=== PATIENT | male | born 1990 | race Caucasian/White ===

== ENCOUNTER 2016-08-24 05:20 | Observation (INO) | payer OTHER ==
[~2016-08-24] VITALS: Ht 185.4 cm; Wt 89.0 kg
[~2016-08-24 05:20] MED LIST: IBUP800T23 PO; OMEP20CA5 PO; PROM25SU8 PO; Z.0.NO CURRENT MEDS
[2016-08-24 05:23] VITALS: BP 133/88; PULSE 98; RESP 16; TEMP 97.5; O2SAT 100
[2016-08-24] MEDS ORDERED: SODIUM CHLOR 0.9% 1000 ML INJ 1,000 ML IV ONE (05:54)
[2016-08-24] MEDS ORDERED: SODIUM CHLOR 0.9% 1000 ML INJ 800 ML IV ONE (05:54)
[2016-08-24] MEDS ORDERED: MORPHINE SULFATE 4 MG/ML INJ IV PUSH ONE (06:00)
[2016-08-24] MEDS ORDERED: ONDANSETRON HCL 4 MG/2 ML VIAL IV PUSH ONE (06:00)
--- NOTE | 2016-08-24 06:02 | PD ---
HPI Chief Complaint: Abdominal Pain Time Seen by Provider: 05:49 Travel History International Travel<30 days: No Contact w/Intl Traveler<30days: No Traveled to known affect area: No History of Present Illness HPI 26-year-old male here for evaluation of abdominal pain, backache, fever, vomiting, generalized malaise. Symptoms started about 4 days ago. He was seen at [facility] 3 days ago where he reportedly had blood work and a CT abdomen pelvis that showed an enlarged gland, and was discharged home with antiemetics. He reports that his pain has not subsided. Abdominal pain is diffuse, cramping, moderate, no modifying factors, associated with nausea and vomiting. The patient is also reporting bilateral/lateral lower back pain which is worse with movements as well as a frontal headache which has been intermittent for the last 3 weeks. He reports that he has had very little to eat or drink in the last few days, and has had decreased urinary output. He has not had a bowel movement in last 5 days. No history of abdominal surgeries. He denies alcohol abuse. No history of IVDU. [facility] Past Medical History Hypertension: Yes Social History Alcohol Use: No Tobacco Use: Yes (06/18 PPD) Substance Use: No Allergies-Medications (Allergen,Severity, Reaction): Coded Allergies: No Known Allergies (Verified , 08/24/16) Reported Meds & Prescriptions Reported Meds & Active Scripts Active No Active Prescriptions or Reported Medications Review of Systems Except as stated in HPI: all other systems reviewed are Neg Physical Exam Narrative GENERAL: Well-developed, well-nourished, moderate distress secondary to pain. SKIN: Warm and dry. HEAD: Atraumatic. Normocephalic. EYES: Pupils equal and round. No scleral icterus. No injection or drainage. ENT: Mucous membranes pink and moist. NECK: Trachea midline. No JVD. No nuchal rigidity. CARDIOVASCULAR: Regular rate and rhythm. RESPIRATORY: No accessory muscle use. Clear to auscultation. Breath sounds equal bilaterally. GASTROINTESTINAL: Abdomen soft, nondistended. Mild diffuse tenderness without peritoneal signs. MUSCULOSKELETAL: No obvious deformities. No clubbing. No cyanosis. No edema. Mild midline vertebral tenderness over the thoracic and lumbar spine with moderate lumbar paraspinal tenderness. NEUROLOGICAL: Awake and alert. No obvious cranial nerve deficits. Motor grossly within normal limits. Normal speech. PSYCHIATRIC: Appropriate mood and affect; insight and judgment normal. Data Data Last Documented VS Vital Signs Date Time Temp Pulse Resp B/P Pulse Ox O2 Delivery O2 Flow Rate FiO2 08/24/16 05:55 18 08/24/16 05:23 97.5 98 133/88 100 Room Air Orders Complete Blood Count With Diff (08/24/16 05:54) Comprehensive Metabolic Panel (08/24/16 05:54) Prothrombin Time / Inr (Pt) (08/24/16 05:54) Act Partial Throm Time (Ptt) (08/24/16 05:54) Lactic Acid Sepsis Protocol (08/24/16 05:54) Lipase (08/24/16 05:54) Urinalysis - C+S If Indicated (08/24/16 05:54) Influenzae A/B Antigen (08/24/16 05:54) Blood Culture (08/24/16 05:54) Chest, Single Ap (08/24/16 05:54) Blood Glucose (08/24/16 05:54) Ecg Monitoring (08/24/16 05:54) Iv Access Insert/Monitor (08/24/16 05:54) Oximetry (08/24/16 05:54) Oxygen Administration (08/24/16 05:54) Ct Abd/Pel W Iv Contrast(Rout) (08/24/16 05:54) Sodium Chlor 0.9% 1000 Ml Inj (Ns 1000 M (08/24/16 05:54) Sodium Chlor 0.9% 1000 Ml Inj (Ns 1000 M (08/24/16 05:54) Ct Brain W/O Iv Contrast(Rout) (08/24/16 ) Morphine Inj (Morphine Inj) (08/24/16 06:00) Ondansetron Inj (Zofran Inj) (08/24/16 06:00) Labs Laboratory Tests Test 08/24/16 06:00 White Blood Count 7.6 TH/MM3 Red Blood Count 5.53 MIL/MM3 Hemoglobin 16.5 GM/DL Hematocrit 46.6 % Mean Corpuscular Volume 84.2 FL Mean Corpuscular Hemoglobin 29.8 PG Mean Corpuscular Hemoglobin 35.4 % Concent Red Cell Distribution Width 13.1 % Platelet Count 115 TH/MM3 Mean Platelet Volume 9.2 FL Neutrophils (%) (Auto) 77.3 % Lymphocytes (%) (Auto) 12.4 % Monocytes (%) (Auto) 8.9 % Eosinophils (%) (Auto) 0.6 % Basophils (%) (Auto) 0.8 % Neutrophils # (Auto) 5.9 TH/MM3 Lymphocytes # (Auto) 0.9 TH/MM3 Monocytes # (Auto) 0.7 TH/MM3 Eosinophils # (Auto) 0.0 TH/MM3 Basophils # (Auto) 0.1 TH/MM3 CBC Comment DIFF FINAL Differential Comment Prothrombin Time 11.4 SEC Prothromb Time International 1.0 RATIO Ratio Activated Partial 30.0 SEC Thromboplast Time Sodium Level 139 MEQ/L Potassium Level 3.7 MEQ/L Chloride Level 104 MEQ/L Carbon Dioxide Level 23.0 MEQ/L Anion Gap 12 MEQ/L Blood Urea Nitrogen 10 MG/DL Creatinine 0.98 MG/DL Estimat Glomerular Filtration 92 ML/MIN Rate Random Glucose 111 MG/DL Lactic Acid Level 2.3 mmol/L Calcium Level 9.3 MG/DL Total Bilirubin 1.2 MG/DL Aspartate Amino Transf 20 U/L (AST/SGOT) Alanine Aminotransferase 34 U/L (ALT/SGPT) Alkaline Phosphatase 70 U/L Total Protein 7.9 GM/DL Albumin 4.1 GM/DL Lipase 75 U/L [facility] Medical Decision Making Medical Screen Exam Complete: Yes Emergency Medical Condition: Yes Medical Record Reviewed: Yes Differential Diagnosis Sepsis, intra-abdominal infectious process, UTI, pyelonephritis, nephrolithiasis , colitis, metabolic abnormality, dehydration Narrative Course Initial vital signs show heart rate 98, blood pressure 133/88, pulse ox 100% on room air, oral temp of 97.5F. CBC shows WBC 7.6, hemoglobin 16.5, hematocrit 46.6, platelets 115 CMP is unremarkable. Lactic acid is 2.3. Lipase is 75. At approximately 7:00 AM at the end of my shift the patient was signed out to Dr Muniz who will follow up with UA, CT abdomen pelvis, CT head, and will disposition the patient. Scripts No Active Prescriptions or Reported Meds Parviz Lynn MD Aug 24, 2016 06:02
[2016-08-24 06:15] LABS: AUTOMATED NEUTROPHIL # 5.9 TH/MM3 (1.8-7.7); BASOPHIL # 0.1 TH/MM3 (0-0.2); BASOPHIL % 0.8 % (0.0-2.0); EOSINOPHIL % 0.6 % (0.0-4.0); HEMATOCRIT 46.6 % (39.0-51.0); HEMO FLAGS DIFF FINAL; LYMPH % 12.4 % (9.0-44.0); LYMPHOCYTE # 0.9 TH/MM3 (1.0-4.8); MEAN CELL VOLUME 84.2 FL (80.0-100.0); MEAN CORPUSCULAR HEMOGLOBIN 29.8 PG (27.0-34.0); MEAN CORPUSCULAR HGB CONC 35.4 % (32.0-36.0); MONO % 8.9 % (0.0-8.0); NEUT % 77.3 % (16.0-70.0); PLATELET COUNT 115 TH/MM3 (150-450); RED BLOOD COUNT 5.53 MIL/MM3 (4.50-5.90); RED CELL DISTRIBUTION WIDTH 13.1 % (11.6-17.2); WHITE BLOOD COUNT 7.6 TH/MM3 (4.0-11.0)
[2016-08-24 06:27] LABS: PROTHROMBIN TIME - PATIENT 11.4 SEC (9.8-11.6)
--- NOTE | 2016-08-24 06:42 | RADRPT ---
EXAM DATE/TIME: 08/24/2016 06:11 [facility] COMPARISON: No previous studies available for comparison. INDICATIONS : Fever, cough, and chest pain. MEDICAL HISTORY : None. SURGICAL HISTORY : None. ENCOUNTER: Initial ACUITY: 1 day PAIN SCORE: 4/10 LOCATION: chest FINDINGS: A single view of the chest demonstrates the lungs to be symmetrically aerated without evidence of mas s, infiltrate or effusion. The cardiomediastinal contours are unremarkable. Osseous structures are intact.CONCLUSION: The lungs are clear. Alexis William MD on August 24, 2016 at 6:41 Board Certified Radiologist. This report was verified electronically.
[2016-08-24 06:56] LABS: ALT (GPT) 34 U/L (12-78); ANION GAP 12 MEQ/L (5-15); AST (GOT) 20 U/L (15-37); BLOOD UREA NITROGEN 10 MG/DL (7-18); CHLORIDE 104 MEQ/L (98-107); GLOMERULAR FILTRATION RATE 92 ML/MIN (>89); POTASSIUM 3.7 MEQ/L (3.5-5.1); SODIUM (NA) 139 MEQ/L (136-145)
[2016-08-24 06:58] LABS: ALKALINE PHOSPHATASE 70 U/L (45-117); TOTAL BILIRUBIN ADULT 1.2 MG/DL (0.2-1.0)
[2016-08-24 07:27] LABS: BLOOD, URINE NEG (NEG); COMMENT (UR) CULT NOT INDICATED; CULTURE IF INDICATED CULT NOT INDICATED; GLUCOSE,URINE NEG (NEG); KETONE, URINE 150 mg/dL (NEG); MUCUS URINE FEW /lpf (OCC); NITRITE,URINE NEG (NEG); PH, URINE 7.5 (5.0-8.5); URINE COLOR YELLOW (YELLW/STRAW)
[2016-08-24] MEDS ORDERED: IOHEXOL 350 MG/ML 10 ML VIAL (for RAD DIAG) IV ONE (07:27)
--- NOTE | 2016-08-24 07:43 | RADRPT ---
EXAM DATE/TIME: 08/24/2016 07:19 [facility] COMPARISON: No previous studies available for comparison. INDICATIONS : Cephalgia with fever. RADIATION DOSE: 57.42 CTDIvol (mGy) MEDICAL HISTORY : Hypertension. SURGICAL HISTORY : None. ENCOUNTER: Initial ACUITY: 3 days PAIN SCALE: 5/10 LOCATION: cranial TECHNIQUE: Multiple contiguous axial images were obtained of the head. Using automated exposure control and adj ustment of the mA and/or kV according to patient size, radiation dose was kept as low as reasonably a chievable to obtain optimal diagnostic quality images. FINDINGS: CEREBRUM: The ventricles are normal for age. No evidence of midline shift, mass lesion, hemorrhage or acute in farction. No extra-axial fluid collections are seen. POSTERIOR FOSSA: The cerebellum and brainstem are intact. The 4th ventricle is midline. The cerebellopontine angle i s unremarkable. EXTRACRANIAL: The visualized portion of the orbits is intact. SKULL: The calvaria is intact. No evidence of skull fracture. CONCLUSION: Normal examination. Frederick Hinson MD on August 24, 2016 at 7:41 Board Certified Radiologist. This report was verified electronically.
--- NOTE | 2016-08-24 07:47 | RADRPT ---
EXAM DATE/TIME: 08/24/2016 07:24 [facility] COMPARISON: No previous studies available for comparison. INDICATIONS : Bilateral abdominal pain and lower back pain with fever and vomiting. IV CONTRAST: 89 cc Omnipaque 350 (iohexol) IV ORAL CONTRAST: No oral contrast ingested. RADIATION DOSE: 7.04 CTDIvol (mGy) MEDICAL HISTORY : Hypertension. SURGICAL HISTORY : None. ENCOUNTER: Initial ACUITY: 3 days PAIN SCALE: 10/10 LOCATION: Bilateral abdomen TECHNIQUE: Volumetric scanning of the abdomen and pelvis was performed. Using automated exposure control and ad justment of the mA and/or kV according to patient size, radiation dose was kept as low as reasonably achievable to obtain optimal diagnostic quality images. FINDINGS: LOWER LUNGS: The visualized lower lungs are clear. LIVER: Homogeneous density without lesion. There is no dilation of the biliary tree. No calcified gallston es. SPLEEN: Normal size without lesion. PANCREAS: Within normal limits. KIDNEYS: Normal in size and shape. There is no mass, stone or hydronephrosis. ADRENAL GLANDS: Within normal limits. VASCULAR: There is no aortic aneurysm. BOWEL/MESENTERY: The stomach, small bowel, and colon demonstrate no acute abnormality. Normal appendix. There are some small lymph nodes in the right lower quadrant mesentery. No inflammatory changes. There is no free i ntraperitoneal air or fluid. ABDOMINAL WALL: Within normal limits. RETROPERITONEUM: There is no lymphadenopathy. BLADDER: No wall thickening or mass. REPRODUCTIVE: Within normal limits. INGUINAL: There is no lymphadenopathy or hernia. MUSCULOSKELETAL: Within normal limits for patient age. CONCLUSION: 1. No acute inflammatory process. 2. Normal appendix. 3. Small lymph nodes right lower quadrant mesentery possibly mesenteric adenitis. Frederick Hinson MD on August 24, 2016 at 7:42 Board Certified Radiologist. This report was verified electronically.
[2016-08-24 08:11] LABS: LACTIC ACID GHOST NOT REPORTABLE
--- NOTE | 2016-08-24 08:59 | PD ---
Physical Exam Date Seen by Provider: Aug 24, 2016 Time Seen by Provider: 07:00 Narrative Patient signed out to me at [address] Lynn, please see Dr. Lynn's note for further details. Patient apparently has been having several weeks' history of malaise, fevers, body aches, back pain, abdominal pains, headache. He does not have any sick contacts. We are awaiting lab work and CAT scan for further disposition. GENERAL: Well-nourished, well-developed young white male patient in moderate distress. Awake and oriented 3. SKIN: Warm and dry. HEAD: Normocephalic. EYES: No scleral icterus. No injection or drainage. NECK: Supple, trachea midline. No JVD or lymphadenopathy. CARDIOVASCULAR: Regular rate and rhythm without murmurs, gallops, or rubs. RESPIRATORY: Breath sounds equal bilaterally. No accessory muscle use. GASTROINTESTINAL: Abdomen soft, non-tender, nondistended. MUSCULOSKELETAL: No cyanosis, or edema. BACK: Mild lower back lumbar area paraspinal tenderness without obvious deformity. No CVA tenderness. Laboratory Tests Test 08/24/16 08/24/16 06:00 07:05 Platelet Count 115 TH/MM3 (150-450) Neutrophils (%) (Auto) 77.3 % (16.0-70.0) Monocytes (%) (Auto) 8.9 % (0.0-8.0) Lymphocytes # (Auto) 0.9 TH/MM3 (1.0-4.8) Random Glucose 111 MG/DL (74-106) Lactic Acid Level 2.3 mmol/L (0.4-2.0) Total Bilirubin 1.2 MG/DL (0.2-1.0) Urine Protein 30 mg/dL (NEG-TRACE) Urine Ketones 150 mg/dL (NEG) Urine Urobilinogen GREATER THAN 12.0 MG/DL (LESS THAN 2.0) Urine Mucus FEW /lpf (OCC) Last 24 hours Impressions Chest X-Ray 08/24/16 [id number] Signed Impressions: Service Date/Time: Wednesday, August 24, 2016 06:11 - CONCLUSION: The lungs are clear. Alexis William MD Abdomen/Pelvis CT 08/24/16 0873 Signed Impressions: Service Date/Time: Wednesday, August 24, 2016 07:24 - CONCLUSION: 1. No acute inflammatory process. 2. Normal appendix. 3. Small lymph nodes right lower quadrant mesentery possibly mesenteric adenitis. Frederick Hinson MD Head CT 08/24/16 0000 Signed Impressions: Service Date/Time: Wednesday, August 24, 2016 07:19 - CONCLUSION: Normal examination. Frederick Hinson MD Lab work shows lactic level elevations of unknown etiology. White blood cell count is unremarkable. Lab work did not indicate significant electrolyte abnormalities. CT of the abdomen pelvis did show some signs of mesenteric adenitis. It is unclear whether this could be the cause of his current issues. However, he does not appear to be doing well as an outpatient, continuing to vomit, doing poorly at home according to his significant other. At this point, my plan would be to admit the patient for further supportive care but also for further evaluation. Case is discussed with Dr. Land for admission. Data Data Last Documented VS Vital Signs Date Time Temp Pulse Resp B/P Pulse Ox O2 Delivery O2 Flow Rate FiO2 08/24/16 05:55 18 08/24/16 05:23 97.5 98 133/88 100 Room Air Orders Complete Blood Count With Diff (08/24/16 05:54) Comprehensive Metabolic Panel (08/24/16 05:54) Prothrombin Time / Inr (Pt) (08/24/16 05:54) Act Partial Throm Time (Ptt) (08/24/16 05:54) Lactic Acid Sepsis Protocol (08/24/16 05:54) Lipase (08/24/16 05:54) Urinalysis - C+S If Indicated (08/24/16 05:54) Influenzae A/B Antigen (08/24/16 05:54) Blood Culture (08/24/16 05:54) Chest, Single Ap (08/24/16 05:54) Blood Glucose (08/24/16 05:54) Ecg Monitoring (08/24/16 05:54) Iv Access Insert/Monitor (08/24/16 05:54) Oximetry (08/24/16 05:54) Oxygen Administration (08/24/16 05:54) Ct Abd/Pel W Iv Contrast(Rout) (08/24/16 05:54) Sodium Chlor 0.9% 1000 Ml Inj (Ns 1000 M (08/24/16 05:54) Sodium Chlor 0.9% 1000 Ml Inj (Ns 1000 M (08/24/16 05:54) Ct Brain W/O Iv Contrast(Rout) (08/24/16 ) Morphine Inj (Morphine Inj) (08/24/16 06:00) Ondansetron Inj (Zofran Inj) (08/24/16 06:00) Iohexol 350 Inj (Omnipaque 350 Inj) (08/24/16 07:27) Labs Laboratory Tests Test 08/24/16 08/24/16 06:00 07:05 White Blood Count 7.6 TH/MM3 Red Blood Count 5.53 MIL/MM3 Hemoglobin 16.5 GM/DL Hematocrit 46.6 % Mean Corpuscular Volume 84.2 FL Mean Corpuscular Hemoglobin 29.8 PG Mean Corpuscular Hemoglobin 35.4 % Concent Red Cell Distribution Width 13.1 % Platelet Count 115 TH/MM3 Mean Platelet Volume 9.2 FL Neutrophils (%) (Auto) 77.3 % Lymphocytes (%) (Auto) 12.4 % Monocytes (%) (Auto) 8.9 % Eosinophils (%) (Auto) 0.6 % Basophils (%) (Auto) 0.8 % Neutrophils # (Auto) 5.9 TH/MM3 Lymphocytes # (Auto) 0.9 TH/MM3 Monocytes # (Auto) 0.7 TH/MM3 Eosinophils # (Auto) 0.0 TH/MM3 Basophils # (Auto) 0.1 TH/MM3 CBC Comment DIFF FINAL Differential Comment Prothrombin Time 11.4 SEC Prothromb Time International 1.0 RATIO Ratio Activated Partial 30.0 SEC Thromboplast Time Sodium Level 139 MEQ/L Potassium Level 3.7 MEQ/L Chloride Level 104 MEQ/L Carbon Dioxide Level 23.0 MEQ/L Anion Gap 12 MEQ/L Blood Urea Nitrogen 10 MG/DL Creatinine 0.98 MG/DL Estimat Glomerular Filtration 92 ML/MIN Rate Random Glucose 111 MG/DL Lactic Acid Level 2.3 mmol/L Calcium Level 9.3 MG/DL Total Bilirubin 1.2 MG/DL Aspartate Amino Transf 20 U/L (AST/SGOT) Alanine Aminotransferase 34 U/L (ALT/SGPT) Alkaline Phosphatase 70 U/L Total Protein 7.9 GM/DL Albumin 4.1 GM/DL Lipase 75 U/L Urine Color YELLOW Urine Turbidity CLEAR Urine pH 7.5 Urine Specific [place] 1.027 Urine Protein 30 mg/dL Urine Glucose (UA) NEG mg/dL Urine Ketones 150 mg/dL Urine Occult Blood NEG Urine Nitrite NEG Urine Bilirubin NEG Urine Urobilinogen GREATER THAN 12.0 MG/DL Urine Leukocyte Esterase NEG Urine RBC 2 /hpf Urine WBC 1 /hpf Urine Mucus FEW /lpf Microscopic Urinalysis Comment CULT NOT INDICATED MDM Medical Record Reviewed: Yes Supervised Visit with SOCORRO: No Diagnosis Primary Impression: Mesenteric adenitis Additional Impression: Vomiting Admitting Information Admitting Physician Requests: Admit Scripts No Active Prescriptions or Reported Meds Cydney Muniz MD Aug 24, 2016 08:59
[2016-08-24 09:20] VITALS: BP 135/79; PULSE 88; RESP 14; O2SAT 96
[2016-08-24] MEDS ORDERED: ACETAMINOPHEN 325 MG TAB PO PRN (10:00)
[2016-08-24] MEDS: SODIUM CHLOR 0.9% 1000 ML INJ 1,000 ML IV SCH ×2 (10:16→18:07)
[2016-08-24] MEDS ORDERED: ACETAMINOPHEN/HYDROcodone 325 MG/5 MG TAB PO PRN (12:45)
--- NOTE | 2016-08-24 12:49 | HHI.HP ---
[facility] No Primary Care Physician Admission Diagnosis mesenteric adenitis/vomiting/elevated lactate levels Diagnoses: (1) Vomiting Diagnosis: Principal (2) Mesenteric adenitis Diagnosis: Principal Chief Complaint: ' I've been sick'. Travel History International Travel<30 Days: No Contact w/Intl Traveler <30 Da: No Traveled to Known Affected Are: No History of Present Illness patient is a 26 y/o male with no significant past medical history who presented to ER with nausea and vomiting for the past few days. he says that he started to have RLQ abdominal pain started four days ago. it was associated with nausea , vomiting, fever and chills. he says that he was seen at [facility] ER few days ago and was prescribed pain and nausea medications and was discharged home. he says that his pain got worse and he hasn't been able to keep anything down.he's also complaining of some back pain. no history of recent fall or trauma. Review of Systems Constitutional: COMPLAINS OF: Fever, Chills, DENIES: Weight loss, Night Sweats Eyes: DENIES: Blurred vision, Diplopia, Vision loss, Double Vision Ears, nose, mouth, throat: DENIES: Tinnitus, Vertigo, Throat pain, Epistaxis Respiratory: DENIES: Apneas, Cough, Snoring, Wheezing, Hemoptysis, Sputum production, Shortness of breath Cardiovascular: DENIES: Chest pain, Palpitations, Syncope, Dyspnea on Exertion , PND, Lower Extremity Edema, Orthopnea, Claudication Gastrointestinal: COMPLAINS OF: Abdominal pain, Nausea, Vomiting, DENIES: Black stools, Bloody stools, Constipation, Diarrhea, Difficulty Swallowing, Anorexia Genitourinary: DENIES: Urinary frequency, Urgency, Hematuria, Dysuria Musculoskeletal: COMPLAINS OF: Back pain, DENIES: Joint pain, Muscle aches, Stiffness, Joint Swelling Integumentary: DENIES: Rash Neurologic: DENIES: Abnormal gait, Headache, Localized weakness, Paresthesias, Seizures, Speech Problems, Tremor, Poor Balance Psychiatric: DENIES: Anxiety, Confusion, Mood changes, Depression, Hallucinations, Agitation, Suicidal Ideation, Homicidal Ideation, Delusions Past Family Social History Past Medical History not significant. Past Surgical History none reported. Reported Medications none reported. Allergies: Coded Allergies: No Known Allergies (Verified , 08/24/16) Active Ordered Medications Current Medications Sodium Chloride 1,000 ml @ 1,000 mls/hr Q1H ONCE IV Last administered on 06:18; Start 08/24/16 at 05:54; Stop 08/24/16 at 06:53; Status DC Sodium Chloride (NS 1000 ml Inj) 800 ml @ 1,000 mls/hr Q48M ONCE IV Last administered on 08/24/16 06:18; Start 08/24/16 at 05:54; Stop 08/24/16 at 06:41 ; Status DC Morphine Sulfate (Morphine Inj) 4 mg ONCE ONCE IV PUSH Last administered on 06:19; Start 08/24/16 at 06:00; Stop 08/24/16 at 06:01; Status DC Ondansetron HCl (Zofran Inj) 4 mg ONCE ONCE IV PUSH Last administered on 06:19; Start 08/24/16 at 06:00; Stop 08/24/16 at 06:01; Status DC Iohexol 89 ml 89 ml STK-MED ONCE IV Last administered on 08/24/16 07:27; Start 08/24/16 at 07:27; Stop 08/24/16 at 07:28; Status DC Sodium Chloride (NS 1000 ml Inj) 1,000 ml @ 125 mls/hr Q8H IV Last administered on 08/24/16 10:16; Start 08/24/16 at 10:00 Ondansetron HCl (Zofran Inj) 4 mg Q8HR PRN IV PUSH NAUSEA; Start 08/24/16 at 09 :00 Acetaminophen (Tylenol) 650 mg Q4H PRN PO FEVER; Start 08/24/16 at 10:00 Family History not significant. Social History no smoking, drinking or illicit drug abuse. Physical Exam Vital Signs Vital Signs Date Time Temp Pulse Resp B/P Pulse Ox O2 Delivery O2 Flow Rate FiO2 08/24/16 09:20 88 14 135/79 96 Room Air 08/24/16 05:55 18 08/24/16 05:23 97.5 98 16 133/88 100 Room Air Physical Exam GENERAL: This is a well-nourished, well-developed patient, in no apparent distress. SKIN: No rashes, ecchymoses or lesions. Cool and dry. HEAD: Atraumatic. Normocephalic. No temporal or scalp tenderness. EYES: Pupils equal round and reactive. Extraocular motions intact. No scleral icterus. No injection or drainage. ENT: Nose without bleeding, purulent drainage or septal hematoma. Throat without erythema, tonsillar hypertrophy or exudate. Uvula midline. Airway patent. NECK: Trachea midline. No JVD or lymphadenopathy. Supple, nontender, no meningeal signs. CARDIOVASCULAR: Regular rate and rhythm without murmurs, gallops, or rubs. RESPIRATORY: Clear to auscultation. Breath sounds equal bilaterally. No wheezes , rales, or rhonchi. GASTROINTESTINAL: Abdomen soft, RLQ tenderness, nondistended. No hepato- splenomegaly, or palpable masses. No guarding. MUSCULOSKELETAL: Extremities without clubbing, cyanosis, or edema. No joint tenderness, effusion, or edema noted. No calf tenderness. Negative Homans sign bilaterally. NEUROLOGICAL: Awake and alert. Cranial nerves II through XII intact. Motor and sensory grossly within normal limits. Five out of 5 muscle strength in all muscle groups. Normal speech. Laboratory Laboratory Tests Test 08/24/16 08/24/16 08/24/16 06:00 07:05 10:53 White Blood Count 7.6 Red Blood Count 5.53 Hemoglobin 16.5 Hematocrit 46.6 Mean Corpuscular Volume 84.2 Mean Corpuscular Hemoglobin 29.8 Mean Corpuscular Hemoglobin 35.4 Concent Red Cell Distribution Width 13.1 Platelet Count 115 Mean Platelet Volume 9.2 Neutrophils (%) (Auto) 77.3 Lymphocytes (%) (Auto) 12.4 Monocytes (%) (Auto) 8.9 Eosinophils (%) (Auto) 0.6 Basophils (%) (Auto) 0.8 Neutrophils # (Auto) 5.9 Lymphocytes # (Auto) 0.9 Monocytes # (Auto) 0.7 Eosinophils # (Auto) 0.0 Basophils # (Auto) 0.1 CBC Comment DIFF FINAL Differential Comment Prothrombin Time 11.4 Prothromb Time International 1.0 Ratio Activated Partial 30.0 Thromboplast Time Sodium Level 139 Potassium Level 3.7 Chloride Level 104 Carbon Dioxide Level 23.0 Anion Gap 12 Blood Urea Nitrogen 10 Creatinine 0.98 Estimat Glomerular Filtration 92 Rate Random Glucose 111 Lactic Acid Level 2.3 0.9 Calcium Level 9.3 Total Bilirubin 1.2 Aspartate Amino Transf 20 (AST/SGOT) Alanine Aminotransferase 34 (ALT/SGPT) Alkaline Phosphatase 70 Total Protein 7.9 Albumin 4.1 Lipase 75 Urine Color YELLOW Urine Turbidity CLEAR Urine pH 7.5 Urine Specific [place] 1.027 Urine Protein 30 Urine Glucose (UA) NEG Urine Ketones 150 Urine Occult Blood NEG Urine Nitrite NEG Urine Bilirubin NEG Urine Urobilinogen GREATER THAN 12.0 Urine Leukocyte Esterase NEG Urine RBC 2 Urine WBC 1 Urine Mucus FEW Microscopic Urinalysis Comment CULT NOT INDICATED Date/Time Procedure Status Source Growth 08/24/16 06:20 Influenza Types A,B Antigen (SAMIRA) - Final Complete Nasal Washing NEGATIVE FOR FLU A AND B ANTIGEN.... 08/24/16 06:10 Aerobic Blood Culture Received Blood Peripheral Pending 08/24/16 06:10 Anaerobic Blood Culture Received Blood Peripheral Pending Result Diagram: 08/24/16 0600 08/24/16 06 Imaging Last Impressions Chest X-Ray 08/24/16 0554 Signed Impressions: Service Date/Time: Wednesday, August 24, 2016 06:11 - CONCLUSION: The lungs are clear. Alexis William MD Abdomen/Pelvis CT 08/24/16 0554 Signed Impressions: Service Date/Time: Wednesday, August 24, 2016 07:24 - CONCLUSION: 1. No acute inflammatory process. 2. Normal appendix. 3. Small lymph nodes right lower quadrant mesentery possibly mesenteric adenitis. Frederick Hinson MD Head CT 08/24/16 0000 Signed Impressions: Service Date/Time: Wednesday, August 24, 2016 07:19 - CONCLUSION: Normal examination. Frederick Hinson MD Assessment and Plan Assessment and Plan A/P - possible mesenteric adenitis keep NPO for now- continue with IV fluid- antiemetics and analgesics as needed. will advance the diet slowly as the nausea/ vomiting and pain subsides. will follow the cultures. Discussed Condition With ER physician, the patient and RN. Problem Qualifiers (1) Vomiting: Qualified Code: R11.2 - Nausea and vomiting, intractability of vomiting not specified, unspecified vomiting type Quita Bonilla MD Aug 24, 2016 12:48
[2016-08-24] MEDS: HYDROmorphone HCL PF 1 MG/ML VIAL IV PUSH PRN ×3 (13:06→23:38)
[2016-08-24] MEDS: ONDANSETRON HCL 4 MG/2 ML VIAL IV PUSH PRN (13:07)
[2016-08-24 13:09] VITALS: BP 134/73; PULSE 67; RESP 12; O2SAT 96
[2016-08-24 16:49] VITALS: BP 152/69; PULSE 70; RESP 18; TEMP 98.2; O2SAT 99
[2016-08-24 20:00] VITALS: BP 137/73; PULSE 74; RESP 21; TEMP 98.1; O2SAT 100
[2016-08-25] VITALS: BP 160/81; PULSE 57; RESP 21; TEMP 98.8; O2SAT 98
[2016-08-25] MEDS: SODIUM CHLOR 0.9% 1000 ML INJ 1,000 ML IV SCH ×3 (01:51→20:32)
[2016-08-25 04:24] VITALS: BP 137/69; PULSE 54; RESP 22; TEMP 98.8; O2SAT 98
[2016-08-25] MEDS: ONDANSETRON HCL 4 MG/2 ML VIAL IV PUSH PRN (08:19)
[2016-08-25] MEDS: HYDROmorphone HCL PF 1 MG/ML VIAL IV PUSH PRN (08:19)
[2016-08-25 08:20] VITALS: BP 143/76; PULSE 59; RESP 17; TEMP 96.4; O2SAT 97
--- NOTE | 2016-08-25 08:38 | HHI.PR ---
Subjective Remarks looks and feels slightly better today. abdominal pain has subsided. still with some nausea. afebrile. Objective Vitals Vital Signs Date Time Temp Pulse Resp B/P Pulse Ox O2 Delivery O2 Flow Rate FiO2 08/25/16 08:20 96.4 59 17 143/76 97 08/25/16 04:24 98.8 54 22 137/69 98 08/25/16 00:00 98.8 57 21 160/81 98 08/24/16 20:00 98.1 74 21 137/73 100 08/24/16 16:49 98.2 70 18 152/69 99 08/24/16 13:09 67 12 134/73 96 Nasal Cannula 2 08/24/16 09:20 88 14 135/79 96 Room Air I/O 08/24/16 08/24/16 08/24/16 08/25/16 08/25/16 08/25/16 07:00 15:00 23:00 07:00 15:00 23:00 Intake Total 135 ml Balance 135 ml Intake Oral 10 ml IV Total 125 ml # Voids 1 Result Diagram: 08/24/16 0608/24/16 06 Imaging Last Impressions Chest X-Ray 08/24/16 0554 Signed Impressions: Service Date/Time: Wednesday, August 24, 2016 06:11 - CONCLUSION: The lungs are clear. Alexis William MD Abdomen/Pelvis CT 08/24/16 0554 Signed Impressions: Service Date/Time: Wednesday, August 24, 2016 07:24 - CONCLUSION: 1. No acute inflammatory process. 2. Normal appendix. 3. Small lymph nodes right lower quadrant mesentery possibly mesenteric adenitis. Frederick Hinson MD Head CT 08/24/16 0000 Signed Impressions: Service Date/Time: Wednesday, August 24, 2016 07:19 - CONCLUSION: Normal examination. Frederick Hinson MD Objective Remarks GENERAL: This is a well-nourished, well-developed patient, in no apparent distress. CARDIOVASCULAR: Regular rate and regular rhythm without murmurs, gallops, or rubs. RESPIRATORY: Clear to auscultation. Breath sounds equal bilaterally. No wheezes , rales, or rhonchi. GASTROINTESTINAL: Abdomen soft, non-tender, nondistended. Normal, active bowel sounds MUSCULOSKELETAL: Extremities without clubbing, cyanosis, or edema. NEURO: Alert & Oriented x4 to person, place, time, situation. Moves all ext x4 Procedures none Medications and IVs Current Medications Sodium Chloride 1,000 ml @ 1,000 mls/hr Q1H ONCE IV Last administered on 06:18; Start 08/24/16 at 05:54; Stop 08/24/16 at 06:53; Status DC Sodium Chloride (NS 1000 ml Inj) 800 ml @ 1,000 mls/hr Q48M ONCE IV Last administered on 08/24/16 06:18; Start 08/24/16 at 05:54; Stop 08/24/16 at 06:41 ; Status DC Morphine Sulfate (Morphine Inj) 4 mg ONCE ONCE IV PUSH Last administered on 06:19; Start 08/24/16 at 06:00; Stop 08/24/16 at 06:01; Status DC Ondansetron HCl (Zofran Inj) 4 mg ONCE ONCE IV PUSH Last administered on 06:19; Start 08/24/16 at 06:00; Stop 08/24/16 at 06:01; Status DC Iohexol 89 ml 89 ml STK-MED ONCE IV Last administered on 08/24/16 07:27; Start 08/24/16 at 07:27; Stop 08/24/16 at 07:28; Status DC Sodium Chloride (NS 1000 ml Inj) 1,000 ml @ 125 mls/hr Q8H IV Last administered on 08/25/16 01:51; Start 08/24/16 at 10:00 Ondansetron HCl (Zofran Inj) 4 mg Q8HR PRN IV PUSH NAUSEA Last administered on 08/25/16 08:19; Start 08/24/16 at 09:00 Acetaminophen (Tylenol) 650 mg Q4H PRN PO FEVER; Start 08/24/16 at 10:00 Hydromorphone HCl (Dilaudid Pf Inj) 0.5 mg Q4H PRN IV PUSH PAIN 7-10 Last administered on 08/25/16 08:19; Start 08/24/16 at 12:45 Acetaminophen/ Hydrocodone Bitart ([place] 5-325 Mg) 1 tab Q4H PRN PO PAIN < 7; Start 08/24/16 at 12:45 A/P Assessment and Plan - possible mesenteric adenitis start on liquid diet and advance as tolerated- continue with IV fluid- antiemetics and analgesics as needed. will advance the diet slowly . will follow the cultures. Discharge Planning possible dc home in am if continues to improve. Quita Bonilla MD Aug 25, 2016 08:38
[2016-08-25 09:27] LABS: ALKALINE PHOSPHATASE 56 U/L (45-117); ALT (GPT) 20 U/L (12-78); ANION GAP 9 MEQ/L (5-15); AST (GOT) 11 U/L (15-37); BICARBONATE 24.7 MEQ/L (21.0-32.0); BLOOD UREA NITROGEN 7 MG/DL (7-18); CHLORIDE 105 MEQ/L (98-107); GLOMERULAR FILTRATION RATE 142 ML/MIN (>89); POTASSIUM 3.4 MEQ/L (3.5-5.1); SODIUM (NA) 139 MEQ/L (136-145); TOTAL BILIRUBIN ADULT 0.6 MG/DL (0.2-1.0)
[2016-08-25 12:06] VITALS: BP 133/77; PULSE 67; RESP 16; TEMP 98.5; O2SAT 97
[2016-08-25] MEDS: ACETAMINOPHEN/HYDROcodone 325 MG/5 MG TAB PO PRN ×2 (13:08→17:22)
[2016-08-25 16:13] VITALS: BP 149/88; PULSE 55; RESP 16; TEMP 98; O2SAT 96
[2016-08-25] MEDS ORDERED: POTASSIUM CHLORIDE 20 MEQ CONTROLLED RELEASE TAB PO ONE (18:00)
[2016-08-25 19:34] VITALS: BP 132/73; PULSE 78; RESP 21; TEMP 98.2; O2SAT 100
[2016-08-26 00:36] VITALS: BP 139/79; PULSE 52; RESP 18; TEMP 98.8; O2SAT 98
[2016-08-26] MEDS: ACETAMINOPHEN/HYDROcodone 325 MG/5 MG TAB PO PRN ×2 (00:43→12:11)
[2016-08-26 04:25] VITALS: BP 139/80; PULSE 50; RESP 21; TEMP 98.1; O2SAT 98
--- NOTE | 2016-08-26 07:40 | HHI.PR ---
Subjective Remarks doing better today. minimal abdominal pain. nausea has almost resolved. tolerated the liquid diet. Objective Vitals Vital Signs Date Time Temp Pulse Resp B/P Pulse Ox O2 Delivery O2 Flow Rate FiO2 08/26/16 04:25 98.1 50 21 139/80 98 08/26/16 00:36 98.8 52 18 139/79 98 08/25/16 19:34 98.2 78 21 132/73 100 08/25/16 16:13 98.0 55 16 149/88 96 08/25/16 12:06 98.5 67 16 133/77 97 08/25/16 08:20 96.4 59 17 143/76 97 Result Diagram: 08/24/16 0600 08/25/16 0740 Imaging Last Impressions Chest X-Ray 08/24/16 0554 Signed Impressions: Service Date/Time: Wednesday, August 24, 2016 06:11 - CONCLUSION: The lungs are clear. Alexis William MD Abdomen/Pelvis CT 08/24/16 0554 Signed Impressions: Service Date/Time: Wednesday, August 24, 2016 07:24 - CONCLUSION: 1. No acute inflammatory process. 2. Normal appendix. 3. Small lymph nodes right lower quadrant mesentery possibly mesenteric adenitis. Frederick Hinson MD Head CT 08/24/16 0000 Signed Impressions: Service Date/Time: Wednesday, August 24, 2016 07:19 - CONCLUSION: Normal examination. Frederick Hinson MD Objective Remarks GENERAL: This is a well-nourished, well-developed patient, in no apparent distress. CARDIOVASCULAR: Regular rate and regular rhythm without murmurs, gallops, or rubs. RESPIRATORY: Clear to auscultation. Breath sounds equal bilaterally. No wheezes , rales, or rhonchi. GASTROINTESTINAL: Abdomen soft, non-tender, nondistended. Normal, active bowel sounds MUSCULOSKELETAL: Extremities without clubbing, cyanosis, or edema. NEURO: Alert & Oriented x4 to person, place, time, situation. Moves all ext x4 Procedures none Medications and IVs Current Medications Sodium Chloride 1,000 ml @ 1,000 mls/hr Q1H ONCE IV Last administered on t 06:18; Start 08/24/16 at 05:54; Stop 08/24/16 at 06:53; Status DC Sodium Chloride (NS 1000 ml Inj) 800 ml @ 1,000 mls/hr Q48M ONCE IV Last administered on 08/24/16 06:18; Start 08/24/16 at 05:54; Stop 08/24/16 at 06:41 ; Status DC Morphine Sulfate (Morphine Inj) 4 mg ONCE ONCE IV PUSH Last administered on 06:19; Start 08/24/16 at 06:00; Stop 08/24/16 at 06:01; Status DC Ondansetron HCl (Zofran Inj) 4 mg ONCE ONCE IV PUSH Last administered on 06:19; Start 08/24/16 at 06:00; Stop 08/24/16 at 06:01; Status DC Iohexol 89 ml 89 ml STK-MED ONCE IV Last administered on 08/24/16 07:27; Start 08/24/16 at 07:27; Stop 08/24/16 at 07:28; Status DC Sodium Chloride (NS 1000 ml Inj) 1,000 ml @ 125 mls/hr Q8H IV Last administered on 08/25/16 12:12; Start 08/24/16 at 10:00; Stop 08/25/16 at 16:42 ; Status DC Ondansetron HCl (Zofran Inj) 4 mg Q8HR PRN IV PUSH NAUSEA Last administered on 08/25/16 08:19; Start 08/24/16 at 09:00 Acetaminophen (Tylenol) 650 mg Q4H PRN PO FEVER; Start 08/24/16 at 10:00 Hydromorphone HCl (Dilaudid Pf Inj) 0.5 mg Q4H PRN IV PUSH BREAKTHROUGH PAIN Last administered on 08/25/16 08:19; Start 08/24/16 at 12:45 Acetaminophen/ Hydrocodone Bitart ([place] 5-325 Mg) 1 tab Q4H PRN PO PAIN 5 OR LESS; Start 08/24/16 at 12:45 Acetaminophen/ Hydrocodone Bitart 2 tab 2 tab Q4H PRN PO PAIN > 5 Last administered on 08/26/16 00:43; Start 08/25/16 at 08:45 Potassium Chloride/Sodium Chloride (KCl Inj/NS 1000 ml Inj) 1,010 ml @ 100 mls/ hr Q10H6M IV ; Start 08/26/16 at 10:00; Stop 08/26/16 at 10:00; Status DC Potassium Chloride 20 meq 20 meq NOW ONCE PO Last administered on 08/25/16 18 :08; Start 08/25/16 at 18:00; Stop 08/25/16 at 18:01; Status DC Potassium Chloride/Sodium Chloride 1,000 ml @ 100 mls/hr Q10H IV ; Start at 10:00; Stop 08/26/16 at 10:00; Status DC Sodium Chloride (NS 1000 ml Inj) 1,000 ml @ 100 mls/hr Q10H IV Last administered on 08/25/16 20:32; Start 08/25/16 at 20:30 A/P Assessment and Plan - possible mesenteric adenitis- improving clinically blood cultures negative. advance the diet- Discharge Planning dc home this afternoon if tolerates the diet. f/u; pcp upon discharge. d/w the patient. Quita Bonilla MD Aug 26, 2016 07:40
--- NOTE | 2016-08-26 07:41 | HHI.DCPOC ---
Discharge Care Plan Diagnosis: (1) Mesenteric adenitis Additional Problems abdominal pain, nausea/vomiting. Goals to Promote Your Health * To prevent worsening of your condition and complications * To maintain your health at the optimal level Directions to Meet Your Goals Take your medications as prescribed Follow your dietary instruction Follow activity as directed Keep your appointments as scheduled Take your immunizations and boosters as scheduled If your symptoms worsen call your PCP, if no PCP go to Urgent Care Center or Emergency Room Smoking is Dangerous to Your Health. Avoid second hand smoke Call the 24-hour hour crisis hotline for domestic abuse at Quita Bonilla MD Aug 26, 2016 07:41
--- NOTE | 2016-08-26 07:42 | HHI.DS ---
Discharge Summary Admission Date Aug 24, 2016 at 08:56 Discharge Date: Aug 26, 2016 Admitting Diagnosis mesenteric adenitis/vomiting/elevated lactate levels (1) Vomiting ICD Code: R11.10 Diagnosis: Principal (2) Mesenteric adenitis ICD Code: I88.0 Diagnosis: Principal Procedures none Brief History - From Admission patient is a 26 y/o male with no significant past medical history who presented to ER with nausea and vomiting for the past few days. he says that he started to have RLQ abdominal pain started four days ago. it was associated with nausea , vomiting, fever and chills. he says that he was seen at [facility] ER few days ago and was prescribed pain and nausea medications and was discharged home. he says that his pain got worse and he hasn't been able to keep anything down.he's also complaining of some back pain. no history of recent fall or trauma. CBC/BMP: 08/24/16 0600 08/25/16 0740 Significant Findings Laboratory Tests Test 08/24/16 08/24/16 08/25/16 06:00 07:05 07:40 Platelet Count 115 TH/MM3 (150-450) Neutrophils (%) (Auto) 77.3 % (16.0-70.0) Monocytes (%) (Auto) 8.9 % (0.0-8.0) Lymphocytes # (Auto) 0.9 TH/MM3 (1.0-4.8) Random Glucose 111 MG/DL (74-106) Lactic Acid Level 2.3 mmol/L (0.4-2.0) Total Bilirubin 1.2 MG/DL (0.2-1.0) Urine Protein 30 mg/dL (NEG-TRACE) Urine Ketones 150 mg/dL (NEG) Urine Urobilinogen GREATER THAN 12.0 MG/DL (LESS THAN 2.0) Urine Mucus FEW /lpf (OCC) Potassium Level 3.4 MEQ/L (3.5-5.1) Calcium Level 8.1 MG/DL (8.5-10.1) Aspartate Amino Transf 11 U/L (15-37) (AST/SGOT) Total Protein 6.3 GM/DL (6.4-8.2) Albumin 3.0 GM/DL (3.4-5.0) Imaging Last Impressions Chest X-Ray 08/24/16 0554 Signed Impressions: Service Date/Time: Wednesday, August 24, 2016 06:11 - CONCLUSION: The lungs are clear. Alexis William MD Abdomen/Pelvis CT 08/24/16 0554 Signed Impressions: Service Date/Time: Wednesday, August 24, 2016 07:24 - CONCLUSION: 1. No acute inflammatory process. 2. Normal appendix. 3. Small lymph nodes right lower quadrant mesentery possibly mesenteric adenitis. Frederick Hinson MD Head CT 08/24/16 0000 Signed Impressions: Service Date/Time: Wednesday, August 24, 2016 07:19 - CONCLUSION: Normal examination. Frederick Hinson MD PE at Discharge GENERAL: This is a well-nourished, well-developed patient, in no apparent distress. CARDIOVASCULAR: Regular rate and regular rhythm without murmurs, gallops, or rubs. RESPIRATORY: Clear to auscultation. Breath sounds equal bilaterally. No wheezes , rales, or rhonchi. GASTROINTESTINAL: Abdomen soft, non-tender, nondistended. Normal, active bowel sounds MUSCULOSKELETAL: Extremities without clubbing, cyanosis, or edema. NEURO: Alert & Oriented x4 to person, place, time, situation. Moves all ext x4 Hospital Course A/P - mesenteric adenitis- improved clinically. blood cultures negative. diet was advanced. Pt Condition on Discharge: Good Discharge Disposition: Discharge Home Discharge Time: <= 30 minutes Discharge Instructions DIET: Follow Instructions for: As Tolerated, No Restrictions Activities you can perform: Regular-No Restrictions Follow up Referrals: PCP Follow-up Quita Bonilla MD Aug 26, 2016 07:42
[2016-08-26] MEDS: SODIUM CHLOR 0.9% 1000 ML INJ 1,000 ML IV SCH (08:11)
[2016-08-26 08:22] VITALS: BP 150/89; PULSE 54; RESP 20; TEMP 98.7; O2SAT 97
[2016-08-26] MEDS ORDERED: NS + KCL 20 MEQ INJ 1,000 ML IV SCH (10:00)
[2016-08-26] MEDS ORDERED: POTASSIUM CHLORIDE INJ 20 MEQ in SODIUM CHLOR 0.9% 1000 ML INJ 1,000 ML IV SCH (10:00)
[2016-08-26 11:52] VITALS: BP 127/62; PULSE 66; TEMP 98.2; O2SAT 96
[2016-08-26] MEDS: ONDANSETRON HCL 4 MG/2 ML VIAL IV PUSH PRN (12:19)
[2016-08-26 13:11] VITALS: RESP 16
== END 2016-08-26 14:54 | disposition home or self-care (01) ==
LOC: NEPE 05:20 → NEDA 08:56 → NEPHCDU 16:12
PROVIDERS: ADMIT Internal Medicine; ATTEND Internal Medicine
DX: I88.0 Nonspecific mesenteric lymphadenitis (principal); F17.200 Nicotine dependence, unspecified, uncomplicated; I10 Essential (primary) hypertension
CPT/HCPCS: 70450; 71010; 74177; 80053; 81001; 83605; 83690; 85025; 85610; 85730; 87040; 87804; 96374; 96375; 99285; G0378; J1170; J2270; J2405; J7030; Q9967